=== PATIENT | male | born 1950 | race Caucasian/White ===

== ENCOUNTER 2018-06-25 16:12 | Emergency (ER) | payer MEDICARE ==
[2018-06-25 16:38] VITALS: BP 137/78
--- NOTE | 2018-06-25 17:24 | ED ---
Dizziness - HPI Summary HPI Summary: 67 yo Wm p/w left eye redness, and yellow green d/c x 2 days associated with mild URI sx. - History Of Current Complaint Chief Complaint: UCEye Stated Complaint: LEFT EYE CONCERN Time Seen by Provider: 06/25/18 16:58 Hx Obtained From: Patient Hx From Patient Unobtainable Due To: Other Onset/Duration: Suddenly Timing: Days Severity Initially: Moderate Severity Currently: Moderate Alleviating Factor(s): Nothing Associated Signs And Symptoms: Positive: Negative - Allergies/Home Medications Allergies/Adverse Reactions: Allergies Allergy/AdvReac Type Severity Reaction Status Date / Time shellfish derived Allergy Muscle Ache Verified 06/25/18 16:32 Home Medications: Home Medications Aspirin EC TAB* [Ecotrin EC TAB*] 1 tab DAILY 06/25/18 [History Confirmed ] Lovastatin [Altoprev] 1 tab QAM 06/25/18 [History Confirmed 06/25/18] PMH/Surg Hx/FS Hx/Imm Hx Previously Healthy: Yes Cardiovascular History: Reports: Hx Hypertension - Cancer History Cancer Type, Location and Year: prostate cancer 2009 - Surgical History Surgery Procedure, Year, and Place: right shoulder tumor removed 1994 Infectious Disease History: No Infectious Disease History: Denies: Traveled Outside the [place] in Last 30 Days - Social History Alcohol Use: Rare Substance Use Type: Reports: None Smoking Status (MU): Former Smoker Review of Systems Constitutional: Negative Positive: Drainage, Erythema. Negative: Photophobia, Blurred Vision, Diplopia Positive: Other - mild URi sx Respiratory: Negative Gastrointestinal: Negative Genitourinary: Negative Musculoskeletal: Negative Neurological: Negative All Other Systems Reviewed And Are Negative: Yes Physical Exam - Summary Physical Exam Summary: Vital Signs Reviewed: Yes Appearance: Positive: Well-Appearing Skin: Positive: Warm Head/Face: Positive: Normal Head/Face Inspection Eyes: Positive: Normal, left conjunctival erythema with yellow green d/c, constantly running ENT: Positive: Normal ENT inspection Neck: Positive: Supple Respiratory/Lung Sounds: Positive: Clear to Auscultation Cardiovascular: Positive: Normal, RRR, S1, S2 Abdomen Positive: Nontender, Soft Musculoskeletal: Positive: Normal Neurological: Positive: CN Intact II-XII Psychiatric: Positive: Normal Triage Information Reviewed: Yes Vital Signs On Initial Exam: Initial Vitals Temp Pulse Resp BP Pulse Ox 36.3 C 73 16 137/78 98 06/25/18 16:33 06/25/18 16:33 06/25/18 16:33 06/25/18 16:33 06/25/18 16:33 Diagnostics - Vital Signs Vital Signs Temp Pulse Resp BP Pulse Ox 06/25/18 16:33 36.3 C 73 16 137/78 98 - Laboratory Lab Statement: Any lab studies that have been ordered have been reviewed, and results considered in the medical decision making process. Dizzy Course/Dx - Course Assessment/Plan: Left conjunctivis - will cover for bacterial conjunctivitis that most likely started with viral conjuctivitis - Diagnoses Provider Diagnoses: Conjunctivitis, left eye Discharge - Sign-Out/Discharge Documenting (check all that apply): Patient Departure All imaging exams completed and their final reports reviewed: Yes - Discharge Plan Condition: Stable Disposition: HOME Prescriptions: Ciprofloxacin 0.3% OPTH.PATY* [Cipro 0.3% Opth*] 2 drop LEFT EYE Q4H 7 Days #1 btl Referrals: Maddie Guevara MD [Primary Care Provider] - - Billing Disposition and Condition Condition: STABLE Disposition: Home
== END 2018-06-25 17:33 | disposition home or self-care (01) ==
LOC: UCCORT 16:12
DX: H10.9 Unspecified conjunctivitis (principal); I10 Essential (primary) hypertension; R09.89 Other specified symptoms and signs involving the circulatory and respiratory systems; Z79.82 Long term (current) use of aspirin; Z91.013 Allergy to seafood; Z87.891 Personal history of nicotine dependence
CPT/HCPCS: 99202; G0463